=== PATIENT | male | born 1970 | race Caucasian/White ===

== ENCOUNTER → 2020-11-30 12:47 | Outpatient (CLI) | payer MEDICARE ==
[2020-11-30 13:23] LABS: BASOPHILS 0.5 % (0-2); EOSINOPHILS 3.1 % (0-7); HEMATOCRIT 43.1 % (42.0-54.0); HEMOGLOBIN 14.6 g/dL (13.5-17.5); IMMATURE GRANULOCYTES 0.3 % (0-5); LYMPHOCYTE ABS# 2.49 10x3/uL (1.32-3.57); MCH 33.3 pg (26.0-34.0); MCHC 33.9 g/dL (31.0-37.0); MCV 98.2 fL (80.0-100.0); MEAN PLATELET VOLUME 9.7 fL (7.4-10.4); MONOCYTES 7.6 % (2-11); NEUTROPHIL ABS# 2.89 10x3/uL (1.78-5.38); NEUTROPHILS 47.5 % (40-80); PLATELET COUNT 234 10x3/uL (130-400); RBC 4.39 10x6/uL (4.20-6.10); RDW 12.7 % (11.5-14.5); WBC 6.1 10x3/uL (4.8-10.8)
[2020-11-30 13:52] LABS: ALBUMIN 3.8 g/dL (3.4-5.0); ALKALINE PHOSPHATASE 100 U/L (30-120); ALT (SGPT) 22 U/L (10-68); BILIRUBIN - TOTAL 0.12 mg/dL (0.2-1.3); CALC OSMOLALITY 282 mosm/kg (275-300); CALCIUM 8.9 mg/dL (8.5-10.1); CARBON DIOXIDE 21.7 mmol/L (21.0-32.0); CHLORIDE - SERUM 108 mmol/L (98-107); CHOL - HDL RATIO 3.9 ratio (2.3-4.9); CHOLESTEROL, TOTAL 221 mg/dL (0-200); CREATININE - SERUM 0.8 mg/dL (0.6-1.3); FERRITIN 378 ng/mL (3-244); GLUCOSE 96 mg/dL (74-106); HDL CHOLESTEROL 57 mg/dL (32-96); LDL CHOLESTEROL 89 mg/dL (0-100); LDL-HDL RATIO 1.6 ratio (1.5-3.5); POTASSIUM - SERUM 3.9 mmol/L (3.5-5.1); PROTEIN - SERUM 7.8 g/dL (6.4-8.2); SODIUM 142 mmol/L (136-145); TRIGLYCERIDE 377 mg/dL (30-200); UREA NITROGEN 12 mg/dL (7-18); eGFR NON AFRICAN AMERICAN > 90 mL/min (90-120)
== END | disposition home or self-care (01) ==
LOC: D.LAB 12:47
PROVIDERS: ATTEND Family Medicine
DX: D51.9 Vitamin B12 deficiency anemia, unspecified (principal); Z12.5 Encounter for screening for malignant neoplasm of prostate; F10.20 Alcohol dependence, uncomplicated; G80.9 Cerebral palsy, unspecified; D64.9 Anemia, unspecified; I67.1 Cerebral aneurysm, nonruptured